=== PATIENT | female | born 1990 ===

== ENCOUNTER → 2019-09-16 | Outpatient (CLI) | payer OTHER | END | disposition home or self-care (01) | LOC: LAB SHORT 11:06 → LAB 11:06 | DX: Z34.93 Encounter for supervision of normal pregnancy, unspecified, third trimester (principal) | CPT/HCPCS: 87081; 87653 ==

== ENCOUNTER 2019-10-17 03:24 | Inpatient (IN) | payer OTHER ==
[~2019-10-17] VITALS: Ht 157.5 cm; Wt 75.0 kg
--- NOTE | 2019-10-17 03:48 | NUR ---
RT CALLED FOR THICK [facility]EC . BLUE BOX [employer]OT[employer] TO ROOM AND WARMER EQUIPMENT CHECKED. BABY BORN AND HAD STRONG CRY WITHIN 30 SECONDS. RT DISMISSED AFTER 5 MIN STANDBY.
[2019-10-17] MEDS ORDERED: PRENATAL TABLE1 EAC2 PO (04:02)
[2019-10-17 06:26] LABS: BASOPHILS ABSOLUTE AUTO 0.03 K/mm3 (0.00-0.23); BASOPHILS PERCENT AUTO 0 % (0-2); EOSINOPHILS ABSOLUTE AUTO 0.05 K/mm3 (0.00-0.68); EOSINOPHILS PERCENT AUTO 0 % (0-6); Hematocrit 39.4 % (33.0-51.0); IMMATURE GRAN ABSOLUTE AUTO 0.03 K/mm3 (0.00-0.10); IMMATURE GRAN PERCENT AUTO 0 % (0-1); LYMPHOCYTES PERCENT AUTO 16 % (21-46); MONOCYTES ABSOLUTE AUTO 0.67 K/mm3 (0.16-1.47); MONOCYTES PERCENT AUTO 5 % (4-13); Mean Corpuscular HGB 33.3 pg (26.0-34.0); Mean Corpuscular HGB Conc 35.5 g/dL (31.5-36.5); Mean Corpuscular Volume 94 fL (80-100); Mean Platelet Volume 10.1 fL (9.1-12.4); NEUTROPHILS ABSOLUTE AUTO 11.19 K/mm3 (1.96-9.15); NEUTROPHILS PERCENT AUTO 79 % (41-73); Platelet Count 207 K/mm3 (150-400); RDW Coefficient Variation 12.9 % (11.7-14.2); RDW Standard Deviation 43.8 fL (35.1-46.3); White Blood Cell Count 14.17 K/mm3 (4.00-11.30)
--- NOTE | 2019-10-17 16:30 | NUR ---
PT SLEEPING SOUNDLY. EARLIER SHE HAD STATED THAT SHE WAS UP ALL NIGHT AND YESTERDAY AND IS EXHAUSTED, AND THAT SHE DOESNT WANT TO BE DISTURBED IF THEY FALL ASLEEP.
--- NOTE | 2019-10-17 19:02 | NUR ---
REPORT TO ONCOMING SHIFT
--- NOTE | 2019-10-17 19:03 | NUR ---
REPORT TO ONCOMING SHIFT
--- NOTE | 2019-10-18 23:13 | NUR ---
WILL MAKE PP FOLLOW UP AFTER NB TCB IN AM.
== END 2019-10-18 23:30 | disposition home or self-care (01) | DRG 807 ==
LOC: OBS 03:24 → BC 03:25 → OBS 03:38 → BC 03:41
PROVIDERS: ADMIT Registered Nurse Community Health
PROC: 10E0XZZ Delivery of Products of Conception, External Approach (ICD-10-PCS; principal; 2019-10-17)
PROC: 0HQ9XZZ Repair Perineum Skin, External Approach (ICD-10-PCS; 2019-10-17)
PROC: 10907ZC Drainage of Amniotic Fluid, Therapeutic from Products of Conception, Via Natural or Artificial Opening (ICD-10-PCS; 2019-10-17)
DX: O69.81X0 Labor and delivery complicated by cord around neck, without compression, not applicable or unspecified (principal); Z37.0 Single live birth; O99.824 Streptococcus B carrier state complicating childbirth; O70.0 First degree perineal laceration during delivery; Z3A.40 40 weeks gestation of pregnancy
CPT/HCPCS: 36415; 85025; J2590